=== PATIENT | male | born 2000 | race Hispanic/Latino ===

== ENCOUNTER 2021-06-17 21:39 | Emergency (ER) | payer OTHER, SELFPAY ==
[~2021-06-17] VITALS: Ht 180.3 cm; Wt 74.8 kg
[2021-06-17 22:11] VITALS: BP 119/68
[2021-06-17 23:22] VITALS: BP 123/69
[2021-06-17] MEDS ORDERED: BROM237S PO (23:36)
[2021-06-17] MEDS ORDERED: IBUP-2070 PO (23:36)
[2021-06-17] MEDS ORDERED: AMOX-429 PO (23:36)
[2021-06-17] MEDS ORDERED: PSEU120T62 PO (23:36)
[2021-06-17] MEDS ORDERED: IBUPROFEN 600 MG TABLET ONE (23:48)
[2021-06-17] MEDS ORDERED: ACETAMINOPHEN 500 MG TABLET ONE (23:49)
[2021-06-18] MEDS ORDERED: IBUPROFEN 600 MG TABLET PO ONE
[2021-06-18] MEDS ORDERED: ACETAMINOPHEN 500 MG TABLET PO ONE
== END 2021-06-18 00:01 | disposition home or self-care (01) ==
LOC: EDH 21:39
DX: J01.90 Acute sinusitis, unspecified (principal); J06.9 Acute upper respiratory infection, unspecified; E11.9 Type 2 diabetes mellitus without complications; Z79.1 Long term (current) use of non-steroidal anti-inflammatories (NSAID); Z20.822 Contact with and (suspected) exposure to COVID-19
CPT/HCPCS: 87635; 87804 ×2; 87880; 99283; C9803